=== PATIENT | female | born 1990 | race Caucasian/White ===

== ENCOUNTER 2016-09-03 09:40 | Observation (INO) | payer OTHER ==
[~2016-09-03] VITALS: Ht 175.3 cm; Wt 91.6 kg
--- NOTE | 2016-09-03 09:35 | NUR ---
Admission @ 35 weeks 6 days admitted per wheelchair from [facility] for evaluation of elevated BP.
[2016-09-03] MEDS ORDERED: LIDOCAINE 1% (10mg/ml) 2ml SDV ID PRN (10:00)
[2016-09-03 10:21] LABS: BASOPHILS % (AUTO) 0.2 % (0-2); EOSINOPHILS # (AUTO) 0.1 T/MM3 (0-0.5); EOSINOPHILS % (AUTO) 0.6 % (0-4); HCT - HEMATOCRIT 38.2 % (36-46); HGB - HEMOGLOBIN 12.8 GM/DL (12-16); IMMATURE GRANULOCYTE # (AUTO) 0.11 T/MM3 (0.00-0.03); LYMPHOCYTES # (AUTO) 2.1 T/MM3 (1-4.8); LYMPHOCYTES % (AUTO) 19.8 % (23-45); MEAN CORPUSCULAR HGB 28.5 UUG (26-34); MEAN CORPUSCULAR HGB CONC(MCHC 33.5 GM/DL (31-37); MEAN CORPUSCULAR VOLUME 85.1 UM3 (80-100); MEAN PLATELET VOLUME 11.6 UM3 (9.4-12.4); MONOCYTES # (AUTO) 0.8 T/MM3 (0-0.8); MONOCYTES % (AUTO) 6.9 % (0-9.0); NEUTROPHILS #(AUTO)-ABSOLUTE 7.7 T/MM3 (1.8-7.7); NEUTROPHILS % (AUTO) 71.5 % (33-66); RED BLOOD COUNT 4.49 M/MM3 (4.00-5.20); WBC - WHITE BLOOD COUNT 10.8 T/MM3 (4.5-11.0)
[2016-09-03] MEDS ORDERED: PREN1TAB86 (10:23)
[2016-09-03] MEDS ORDERED: ACET-62 PO (10:25)
[2016-09-03 10:30] LABS: ALBUMIN 3.6 G/DL (3.5-5.0); ALBUMIN/GLOBULIN RATIO 1.3 RATIO (1.1-2.2); ALKALINE PHOSPHATASE 139 U/L (38-126); ALT (SGPT) 28 U/L (9-52); ANION GAP 10 MEQ/L (5-15); AST (SGOT) 23 U/L (14-36); BUN/CREATININE RATIO 12 RATIO (6-26); CALCIUM 9.6 MG/DL (8.4-10.2); CHLORIDE 106 MEQ/L (98-107); CO2 - CARBON DIOXIDE 23 MEQ/L (22-30); CREATININE 0.6 MG/DL (0.7-1.2); GLOMERULAR FILTRATION RATE 122; GLUCOSE 86 MG/DL (65-110); SODIUM 139 MEQ/L (134-144); TOTAL PROTEIN 6.3 G/DL (6.3-8.2)
[2016-09-03] MEDS ORDERED: CYCL-375 PO (11:08)
--- NOTE | 2016-09-03 12:32 | PNPDOC ---
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 No Sx. Good FM. Objective General: Alert and Oriented Laboratory Item Value Date Time Platelet Count 171 T/MM3 09/03/16 1009 Hemoglobin 12.8 GM/DL 09/03/16 1009 Creatinine 0.6 MG/DL L 09/03/16 1009 Aspartate Amino Transf (AST/SGOT) 23 U/L 09/03/16 1009 Alanine Aminotransferase (ALT/SGPT) 28 U/L 09/03/16 1009 Objective Comments NST reactive. [place]- irritability (1) 35 weeks gestation of (2) Gestational hypertension Assessment & Plan: Finish 24 hour urine. Likely deliver at 37 wks unless severe preeclampsia develops prior. Recheck BP in office on Wednesday. Q&A JUWAN TAPIA MD Sep 03, 2016 12:32
[2016-09-03 13:25] VITALS: Ht 175.3 cm; Wt 91.6 kg
[2016-09-03] MEDS ORDERED: ACETAMINOPHEN 500 MG TABLET PO PRN (15:15)
--- NOTE | 2016-09-03 15:15 | NUR ---
Report from Bhavana Stevens RN. Care assumed. Pt resting in bed with TV on. States her PERES is "not bad." She stated that by this time in the day she has already drank 100 oz of H2O, but today she has only had about 500 ml and wonders if that is the cause of her PERES. Tylenol 1000 mg po given as ordered by Dr Donaldson. Discussed POC with pt. Verbalized understanding. Encouraged to call PRN.
--- NOTE | 2016-09-03 15:15 | NUR ---
Shift summary Patient has been on bedrest with bathroom privileges since admission. Has tolerated lunch tray. Collecting urine for 24 hour urine. Patient's mother has been here and supportive. is at work. Monitoring BP. Reports headache now.
[2016-09-03 15:45] VITALS: BP 134/76; PULSE 75; RESP 18; TEMP 98.8
--- NOTE | 2016-09-03 15:45 | NUR ---
PERES RN in room for VS. BP 130s/70s. Pt denies PERES. Denies further needs.
[2016-09-03] MEDS ORDERED: DiphenhydrAMINE 25 MG CAPSULE PO PRN (17:45)
--- NOTE | 2016-09-03 17:45 | NUR ---
Pt Communication Discussed new POC for evening with pt, and reminded of reportable signs and symptoms. States that will be bringing her dinner. Denies PERES, visual changes, and upper quadrant pain. Denies needs.
--- NOTE | 2016-09-03 18:10 | NUR ---
Dr Izquierdo Pt requests to get the muscle relaxer she takes at bedtime for her chronic hip pain. Dr Donaldson notified. Order given.
--- NOTE | 2016-09-03 20:15 | NUR ---
Status Pt sitting in bed, working on laptop. at bedside. TV on. Pt denies PERES, visual changes, and upper quadrant pain. Requests flexeril before bed. Will give after obtained from HS. Denies needs at this time.
[2016-09-03 20:18] VITALS: BP 146/78; PULSE 86; RESP 16; TEMP 98.2
[2016-09-03] MEDS ORDERED: CYCLOBENZAPRINE 10 MG TABLET PO ONE (22:00)
[2016-09-04 00:05] VITALS: BP 131/72; PULSE 87; RESP 16; TEMP 98
--- NOTE | 2016-09-04 00:05 | NUR ---
Status Pt asleep when RN entered room for vital signs. Woke easily to name. Denies PERES and pain. States that she has been able to sleep. Refuses benadryl at this time. Encouraged to rest. Denies further needs.
--- NOTE | 2016-09-04 00:24 | NUR ---
Chart Check 24 hour chart check completed
[2016-09-04 04:06] VITALS: BP 124/74; PULSE 86; RESP 18
[2016-09-04 08:39] VITALS: BP 132/76; PULSE 85; RESP 17; TEMP 98.1
[2016-09-04 09:15] LABS: CREATININE 0.6 MG/DL (0.7-1.2)
== END 2016-09-04 11:40 | disposition home or self-care (01) ==
LOC: MC 09:40 → OBSVTOIN 09:55 → INTOOBSV 09:55
PROVIDERS: ADMIT Obstetrics & Gynecology; ATTEND Obstetrics & Gynecology
DX: O13.3 Gestational [pregnancy-induced] hypertension without significant proteinuria, third trimester (principal); Z3A.35 35 weeks gestation of pregnancy
CPT/HCPCS: 36415; 80053; 82575; 84156; 85025; 99218

== ENCOUNTER 2016-09-08 09:54 | Inpatient (IN) | payer OTHER ==
[~2016-09-08] VITALS: Ht 175.3 cm; Wt 91.8 kg
[2016-09-08] MEDS: GENTAMICIN 120 MG in NORMAL SALINE 100 ML IV SCH ×2 (01:00→17:15)
[~2016-09-08 09:54] MED LIST: ACET-62 PO; CYCL-375 PO; PREN1TAB86
--- OUTSIDE RECORDS SUMMARY | 2016-09-08 10:08 | XMS REPORT | Continuity of Care Document ---
Author Author [facility] Organization [facility] Address Unknown Phone Unavailable Care Team Providers Care Ic Designer Custom Name Role Phone MACK HORN MD Primary Care Physician [phone] Insurance Providers Guarantor Carmita [place] [address] Email DENIED 16 Payer [employer] Policy Number [id number] Subscriber's Name CancholaShayne Rey Relationship 19 Child Group Number [id number] Advance Directives Directive Response Recorded Date/Time Ordered Resuscitation Status Full Code 09/03/16 9:55am Resuscitation Documents on File No 09/03/16 2:05pm DPOA for Healthcare Only No 09/03/16 2:05pm Living Will No 09/03/16 2:05pm Problems Active Problems Medical Problem Onset Date Status 35 weeks gestation of Unknown Gestational hypertension Unknown Medications Current Home Medications Medication Dose Units Route Directions Days Qty Instructions Start Date Acetaminophen 500 Mg Tablet 1-2 Tab Oral as needed for Pain Do not exceed 3,200 mg of acetaminophen in a 24 hours period. 09/03/16 Cyclobenzaprine Hcl 10 Mg Tablet 1 Tab Oral as needed for Muscle Spasm 09/03/16 Vit W-Ca,Fe,Fa(<1 Mg) ( Vitamins) 1 Each Tablet 09/03/16 Social History Social History Problem Response Recorded Date/Time Onset Date Status Reason for Hospitalization WITH ELEVATED BLOOD PRESSURES 2016 11:03am Not Applicable Not Applicable Hx Substance Use No 09/03/2016 2:05pm Not Applicable Not Applicable Has the pt used tobacco in the last 12 months No 09/03/2016 2:05pm Not Applicable Not Applicable Query Response Start Date Stop Date Smoking Status Never smoker Hospital Discharge Instructions Instructions: Care Instructions: I was in the hospital because (patient own words): being checked for preeclampsia Discharge Diet: REGULAR Discharge Activity: DECREASE ACTIVITY Follow Up Appointments: FOLLOW UP WITH DR TAPIA WednesdayAugust Pending Lab / Results: No Pending Lab Expected Signs/Symptoms: PRECAUTIONS DISCUSSED PER DR WHITFIELD Notify Physician If: SEE DISCHARGE TEACHING During Business Hours:: Please call the physician's office at After Business Hours:: Please call [phone] and have the cracker and cookie machine operator page the physician. Pain Management/Treatment: SEE DISCHARGE TEACHING Pain Scale Utilized to Educate Patient: 0-10 Pain Scale Wound/Incision Care: NA Condition at time of discharge: Good Plan of Care Discharge Date 09/04/16 11:40am Disposition 30 STILL A PATIENT Instructions/Education Provided [facility] Prescriptions See Medication Section Care Plan and Goals See Discharge Instructions Section Functional Status Query Response Date Recorded Ability to complete ADL's impeded by No change September 03, 2016 10:16am Allergies, Adverse Reactions, Alerts No known allergies. Immunizations Query Response on File Recorded Date/Time Hx Influenza Vaccination Yes 09/03/16 10:18am Hx Pneumococcal Vaccination No 09/03/16 10:18am Hx Influenza Vaccination Yes 09/03/16 10:18am Influenza Vaccine Hx 03-18-16 09/03/16 2:05pm Tdap Vaccine Hx 07-28-2016 09/03/16 2:05pm Vital Signs Acute Vital Signs Vital Response Date/Time Temperature (Fahrenheit) 98.1 deg F (96.8 - 99.1) 09/04/2016 8:39am Temperature (Calculated Celsius) 36.31488 degrees C (36.0 - 37.3) 09/04/2016 8:39am Pulse Rate (adult) 85 bpm (60 - 100) 09/04/2016 8:39am Respiratory Rate 17 breaths/min (10 - 20) 09/04/2016 8:39am Blood Pressure 132/76 mm Hg 09/04/2016 8:39am Blood Pressure Source Automatic Cuff 09/04/2016 8:39am Height (Feet) 5 feet 09/03/2016 2:05pm Height (Inches) 9.00 inches 09/03/2016 2:05pm Weight (Kilograms) 91.600 kg 09/03/2016 2:05pm Body Mass Index (BMI) 29.8 09/03/2016 1:25pm Results Laboratory Results Test Name Result Units Flags Reference Collection Date/Time Result Date/ Time Comments White Blood Count 10.8 T/MM3 4.5-11.0 09/03/2016 10:09/03/2016 10: 21am Red Blood Count 4.49 M/MM3 4.00-5.20 09/03/2016 10:09/03/2016 10: 21am Hemoglobin 12.8 GM/DL 12-16 09/03/2016 10:09/03/2016 10:21am Hematocrit 38.2 % 36-46 09/03/2016 10:09/03/2016 10:21am Mean Corpuscular Volume 85.1 UM3 80-100 09/03/2016 10:09/03/2016 10:21am Mean Corpuscular Hemoglobin 28.5 UUG 26-34 09/03/2016 10:2016 10:21am Mean Corpuscular Hemoglobin Concent 33.5 GM/DL 31-37 09/03/2016 10:09/03/2016 10:21am RDW Standard Deviation 41.4 FL 36.9-50.2 09/03/2016 10:09/03/2016 10:21am Platelet Count 171 T/MM3 130-400 09/03/2016 10:09/03/2016 10:21am Mean Platelet Volume 11.6 UM3 9.4-12.4 09/03/2016 10:09/03/2016 10 :21am Neutrophils (%) (Auto) 71.5 % H 33-66 09/03/2016 10:09/03/2016 10: 21am Lymphocytes (%) (Auto) 19.8 % L 23-45 09/03/2016 10:09/03/2016 10: 21am Monocytes (%) (Auto) 6.9 % 0-9.0 09/03/2016 10:09/03/2016 10:21am Eosinophils (%) (Auto) 0.6 % 0-4 09/03/2016 10:09/03/2016 10:21am Basophils (%) (Auto) 0.2 % 0-2 09/03/2016 10:09/03/2016 10:21am Immature Granulocyte % (Auto) 1.0 % H 0.0-0.5 09/03/2016 10:2016 10:21am Absolute Neutrophils (auto) 7.7 T/MM3 1.8-7.7 09/03/2016 10:2016 10:21am Absolute Lymphocytes (auto) 2.1 T/MM3 1-4.8 09/03/2016 10:2016 10:21am Absolute Monocytes (auto) 0.8 T/MM3 0-0.8 09/03/2016 10:2016 10:21am Absolute Eosinophils (auto) 0.1 T/MM3 0-0.5 09/03/2016 10:2016 10:21am Absolute Basophils (auto) 0.0 T/MM3 0-0.2 09/03/2016 10:2016 10:21am Absolute Immature Granulocyte (auto 0.11 T/MM3 H 0.00-0.03 09/03/2016 10: 09/03/2016 10:21am Icterus Index < 2 0-7 09/03/2016 10:09/03/2016 10:30am Chemistry Specimen Hemolysis < 15 0-25 09/03/2016 10:09/03/2016 10:30am 0-25: Specimen Exhibited No Hemolysis. Turbidity < 20 0-20 09/03/2016 10:09/03/2016 10:30am Sodium Level 139 MEQ/L 134-144 09/03/2016 10:09/03/2016 10:30am Potassium Level 4.0 MEQ/L 3.6-5 09/03/2016 10:09/03/2016 10:30am Chloride Level 106 MEQ/L 98-107 09/03/2016 10:09/03/2016 10:30am Carbon Dioxide Level 23 MEQ/L 22-30 09/03/2016 10:09/03/2016 10: 30am Anion Gap 10 MEQ/L 5-15 09/03/2016 10:09/03/2016 10:30am Blood Urea Nitrogen 7.0 MG/DL 7-17 09/03/2016 10:09/03/2016 10: 30am Creatinine 0.6 MG/DL L 0.7-1.2 09/03/2016 9:0009/04/2016 9:15am BUN/Creatinine Ratio 12 RATIO 6-26 09/03/2016 10:09/03/2016 10: 30am Glomerular Filtration Rate Calc 122 09/03/2016 9:0009/04/2016 9: 15am Glucose Level 86 MG/DL 65-110 09/03/2016 10:09/03/2016 10:30am Calculated Osmolality 265 MOSM/KG 261-280 09/03/2016 10:2016 10:30am Calcium Level 9.6 MG/DL 8.4-10.2 09/03/2016 10:09/03/2016 10:30am Total Bilirubin 0.60 MG/DL 0.20-1.30 09/03/2016 10:09/03/2016 10: 30am Alkaline Phosphatase 139 U/L H 38-126 09/03/2016 10:09/03/2016 10: 30am Total Protein 6.3 G/DL 6.3-8.2 09/03/2016 10:09/03/2016 10:30am Albumin 3.6 G/DL 3.5-5.0 09/03/2016 10:09/03/2016 10:30am Globulin 2.7 G/DL 2.4-3.6 09/03/2016 10:09/03/2016 10:30am Albumin/Globulin Ratio 1.3 RATIO 1.1-2.2 09/03/2016 10:09/03/2016 10:30am Aspartate Amino Transf (AST/SGOT) 23 U/L 14-36 09/03/2016 10:09/03 10:30am Alanine Aminotransferase (ALT/SGPT) 28 U/L 9-52 09/03/2016 10: 10:30am Urine Creatinine 64.4 MG/DL 09/03/2016 9:09/04/2016 9:20am Creatinine Clearance 24 Hour 142.0 ML/MIN H 75-115 09/03/2016 9:00am 9:20am Urine Protein 18 MG/DL 09/03/2016 9:00am 09/04/2016 9:19am Urine Total Protein 24 Hour 414 MG/24HR H 42-225 09/03/2016 9:00am 09/04 9:26am Patient Height (Urine) 175.3 CM 09/03/2016 9:00am 09/04/2016 9:15am Patient Weight (Urine) 92 KG 09/03/2016 9:00am 09/04/2016 9:15am Urine Total Volume 2.300 L 09/03/2016 9:00am 09/04/2016 9:28am Urine Collection Time 24 HRS 09/03/2016 9:00am 09/04/2016 9:28am Procedures No known history of procedures. Encounters Encounter Location Arrival/Admit Date Discharge/Depart Date Attending Provider Discharged Inpatient (obs) [facility] 09/03/16 9:40am 09/04/16 11 :40am JUWAN TAPIA MD
[2016-09-08] MEDS ORDERED: MAG-AL + SIM LIQUID 30 ML UDC PO PRN (10:15)
[2016-09-08] MEDS ORDERED: CALCIUM CARBONATE 500mg Chewable TAB PO PRN (10:15)
[2016-09-08] MEDS ORDERED: LIDOCAINE 1% (10mg/ml) 2ml SDV ID PRN (10:15)
[2016-09-08] MEDS: LR 1,000 ML IV PRN ×3 (10:24→22:44)
[2016-09-08 10:28] LABS: HCT - HEMATOCRIT 39.5 % (36-46); HGB - HEMOGLOBIN 13.4 GM/DL (12-16); MEAN CORPUSCULAR HGB 28.5 UUG (26-34); MEAN CORPUSCULAR HGB CONC(MCHC 33.9 GM/DL (31-37); MEAN PLATELET VOLUME 11.6 UM3 (9.4-12.4); RED BLOOD COUNT 4.7 M/MM3 (4.00-5.20); WBC - WHITE BLOOD COUNT 9.7 T/MM3 (4.5-11.0)
[2016-09-08] MEDS ORDERED: D5LR 1,000 ML IV PRN (11:00)
[2016-09-08] MEDS ORDERED: OXYTOCIN 30 UNIT in D5LR 500 ML PRN (11:30)
[2016-09-08 11:34] VITALS: BP 143/69; PULSE 112; RESP 16; TEMP 98.1; O2SAT 100
[2016-09-08 11:51] LABS: ALBUMIN 3.5 G/DL (3.5-5.0); ALBUMIN/GLOBULIN RATIO 1.2 RATIO (1.1-2.2); ALKALINE PHOSPHATASE 157 U/L (38-126); ALT (SGPT) 25 U/L (9-52); ANION GAP 13 MEQ/L (5-15); AST (SGOT) 22 U/L (14-36); BUN/CREATININE RATIO 10 RATIO (6-26); CALCIUM 9.6 MG/DL (8.4-10.2); CHLORIDE 108 MEQ/L (98-107); CO2 - CARBON DIOXIDE 20 MEQ/L (22-30); CREATININE 0.6 MG/DL (0.7-1.2); GLOMERULAR FILTRATION RATE 122; GLUCOSE 93 MG/DL (65-110); POTASSIUM 3.8 MEQ/L (3.6-5); SODIUM 141 MEQ/L (134-144); TOTAL PROTEIN 6.5 G/DL (6.3-8.2)
--- NOTE | 2016-09-08 14:01 | ANESOB ---
Epidural/ Date/Time DATE: 09/08/16 TIME: 1310 Preop Diagnosis Procedure: Labor Epidural Plan: Epidural Height: 5 ' 9.00 " Weight: 91.800 kg BMI: kg/m2 P:0 Medications & Allergies Inpatient Medications Current Medications Medications (Trade) Dose Ordered Sig/Jolene Start Time Stop Time Status Last Admin Dose Admin Lidocaine HCl 0.2 mg 0.2 mg PRN PRN 09/08/16 10:15 Lactated Ringer's (Lactated Ringers) 1,000 ml @ 0 mls/hr Q0M PRN 09/08/16 10:08 09/08/16 13:42 0 MLS/HR Acetaminophen (Tylenol Extra Strength) 1-2 TABS = 500-1,000 MG Q4H PRN 09/08/16 10:15 Al Hydroxide/Mg Hydroxide (Maalox) 30 ml Q4H PRN 09/08/16 10:15 Calcium Carbonate 1-2 TABS Q2H PRN 09/08/16 10:15 Dextrose/Lactated Ringer's 1,000 ml @ 0 mls/hr Q0M PRN 09/08/16 11:00 09/08/16 11:32 0 MLS/HR Oxytocin/Dextrose/ Lactated Ringer's (Pitocin/D5lr) 503 ml @ 0 mls/hr Q0M PRN 09/08/16 11:30 09/08/16 11:31 0 MLS/HR Acetaminophen (Acetaminophen) 500 Mg Tablet, 1-2 TAB PO for PAIN, (Reported) Do not exceed 3,200 mg of acetaminophen in a 24 hours period. Last Taken: on 09/07/16 1000 Cyclobenzaprine HCl (Cyclobenzaprine HCl) 10 Mg Tablet, 1 TAB PO for MUSCLE SPASM, (Reported) Last Taken: on 09/06/16 2000 Vit W-Ca,Fe,FA(<1 mg) ( Vitamins) 1 Each Tablet, (Reported) Last Taken: on 09/08/16 0800 Coded Allergies: No Known Allergies (Unverified , 09/08/16) Medical/Surgical History Anesthesia PMH: Reports: *Hypertension (mild preeclampsia), Denies: *Diabetes, *CO, Anesthesia Reactions, Asthma, Bld Transfusion Reaction, CHF, COPD, CVA/ Stroke/TIA, Cancer, Malignant Hyperthermia, Seizures Does patient use chewing tobac: No Second Hand Exposure: No Substance Use Type: does not use Alcohol Intake: none Anesthesia Adverse Reactions: FOUND none Family Hx of Anesthesia Advers: none Complications During : No Pertinent Findings Laboratory Tests 09/08/16 10:19 09/08/16 10:49 Physical Exam Respiratory: Lungs clear Cardiovascular: Regular rate, rhythm Airway Assessment Mallampati Score: II TMD: 3 Fingerbreadths Neck Extension: Good Overall Assessment: May Be Diff Mask Vent., May Be Diff Intubation ASA: 2 Discussion Discussed risks/options/alternatives of anesthesia. Patient consents. Nursing pain assessment noted. Present for Discussion: Present: Family Member, Parent, Spouse Attestation Statement Prior to the delivery of any anesthetic medication, I examined the patient, developed the plan, obtained the patient's consent and discussed the risk and benefits of the procedure with the patient/guardian. If the note happens to be signed after anesthesia start time, it is only due to providing efficient care of the patient and documenting at a time when the computer is available. PABLO CHUNG CRNA Sep 08, 2016 14:01
[2016-09-08] MEDS ORDERED: ROPIVACAINE 1% 200 MG, SUFENTANIL 50 MCG in NORMAL SALINE 80 ML EPI PRN (14:15)
[2016-09-08] MEDS ORDERED: ONDANSETRON 4mg/2ml INJECTION IV PRN (14:15)
[2016-09-08] MEDS ORDERED: DiphenhydrAMINE 50 MG/ML INJECTION IV PRN (14:15)
[2016-09-08] MEDS ORDERED: NALOXONE 0.4mg/ml INJECTION IV PRN (14:15)
[2016-09-08] MEDS ORDERED: OXYTOCIN 30 UNIT in D5W 500 ML IV ONE (16:51)
[2016-09-08] MEDS ORDERED: PHENYLEPHRINE RECTAL SUPPOSITORY RECTALLY PRN (17:00)
[2016-09-08] MEDS ORDERED: HYDROCODONE/APAP 5 mg/325 mg TABLET PO PRN (17:00)
[2016-09-08] MEDS ORDERED: DiphenhydrAMINE 25 MG CAPSULE PO PRN (17:00)
[2016-09-08] MEDS ORDERED: MEASLES-MUMPS-RUBELLA VACCINE 0.5ml INJECTION SQ ONE (17:00)
[2016-09-08] MEDS ORDERED: HYDROCORTISONE 2.5% CREAM 30 GM RECTALLY PRN (17:00)
[2016-09-08] MEDS ORDERED: MILK OF MAGNESIA 30 ML SUSP PO PRN (17:00)
[2016-09-08] MEDS ORDERED: GENTAMICIN 120 MG in NORMAL SALINE 100 ML IV SCH (17:00)
[2016-09-08] MEDS ORDERED: GENTAMICIN 100 ML IV SCH (17:15)
[2016-09-08] MEDS: AMPICILLIN 2 G in NORMAL SALINE 100 ML IV SCH ×2 (17:15→22:43)
--- NOTE | 2016-09-08 17:17 | NUR ---
GENTAMICIN CONSULT: Order noted to begin gentamicin therapy for Ms Canchola, who is 26 years old and weights 91.8kg. Her serum creatinine is 0.6 mg/dl. Will begin with gentamicin 120mg IV q8h. If therapy continues >48hrs, will draw levels and evaluate. Will continue to monitor and adjust if necessary. Thank you.
--- NOTE | 2016-09-08 20:23 | ANESPO ---
Post-Op Note Date 09/08/16 Time: 20:23 Status Pt Participated in Evaluation: Pt participated in person Vital Signs Date Time Temp Pulse Resp B/P Pulse Ox O2 Delivery O2 Flow Rate FiO2 09/08/16 11:34 98.1 112 16 143/69 100 Room Air Respiratory Function: Airway patent, Regular respirations Cardiovascular Function: Regular pulse Mental Status: Alert/oriented Pain Level Intensity: 0 Hydration: Taking po fluids Complications during Recovery None apparent Follow-Up Instructions Instructions Per Surgeon SAMINA MARTINEZ CRNA Sep 08, 2016 20:23
[2016-09-08 20:32] VITALS: BP 123/83; PULSE 94; RESP 18; TEMP 99.1; O2SAT 99
[2016-09-08] MEDS: IBUPROFEN 800 MG TABLET PO PRN (20:37)
--- NOTE | 2016-09-08 20:50 | NUR ---
Epidural Epidural catheter removed without complications, tip intact, no S/S of infection noted. Area cleansed with alcohol, betadine and covered with a bandaid. Pt. educated about S/S of infection and to call doctor with concerns.
--- NOTE | 2016-09-08 20:50 | NUR ---
status patient up to bathroom for first time. patient denied dizziness or other problems while ambulating to bathroom. patient provided own allie care and was able to empty bladder. denies further needs or complaints. will continue to monitor.
--- NOTE | 2016-09-08 21:00 | NUR ---
Care Assumed Bedside report from Cheikh Fiore RN. Care assumed. Pt sitting up in bed holding . Reports that ibuprofen decreased pain, and is doing well at this time. Discussed POC with pt. Denies needs.
--- NOTE | 2016-09-08 23:30 | NUR ---
Status Pt laying in bed holding infant. States she is ready to sleep. VSS. Ampicillin infused. Infant swaddled and placed in bassinet. Pt denies pain and needs. Lights dimmed. at bedside. Encouraged to call PRN.
[2016-09-08 23:36] VITALS: BP 130/67; PULSE 88; RESP 16; TEMP 98.3
--- NOTE | 2016-09-09 00:56 | NUR ---
Chart Check 24 hour chart check completed
[2016-09-09] MEDS: IBUPROFEN 800 MG TABLET PO PRN ×2 (03:53→15:44)
[2016-09-09 04:21] VITALS: BP 112/58; PULSE 70; RESP 16; TEMP 98.5
[2016-09-09] MEDS: AMPICILLIN 2 G in NORMAL SALINE 100 ML IV SCH ×3 (05:08→17:10)
[2016-09-09 06:06] LABS: HCT - HEMATOCRIT 34.7 % (36-46); HGB - HEMOGLOBIN 11.5 GM/DL (12-16); MEAN CORPUSCULAR HGB 28.3 UUG (26-34); MEAN CORPUSCULAR HGB CONC(MCHC 33.1 GM/DL (31-37); MEAN CORPUSCULAR VOLUME 85.5 UM3 (80-100); MEAN PLATELET VOLUME 12.1 UM3 (9.4-12.4); RED BLOOD COUNT 4.06 M/MM3 (4.00-5.20); WBC - WHITE BLOOD COUNT 14.6 T/MM3 (4.5-11.0)
[2016-09-09 08:20] VITALS: BP 118/72; PULSE 68; RESP 16; TEMP 98.2
--- NOTE | 2016-09-09 08:29 | PNPDOC ---
Progress Note PPD1 Rubella: Equivical GBS: Negative Blood Type:O pos Subjective 09/09/16 Lochia: Minimal Pain: Controlled Voiding: Voiding Objective Vital Signs Date Time Temp Pulse Resp B/P Pulse Ox O2 Delivery O2 Flow Rate FiO2 09/09/16 04:21 98.5 70 16 112/58 Room Air 09/08/16 20:32 99 Urine Output: Good General: Alert and Oriented Abdomen: Fundus Firm Mildly tender Extremities: Non-tender Laboratory Item Value Date Time White Blood Count 14.6 T/MM3 H # 09/09/16518 Hemoglobin 11.5 GM/DL L # 09/09/16518 Assessment (1) (spontaneous vaginal delivery) Assessment & Plan: MMR vaccine. Plan: Routine Care (2) Chorioamnionitis, delivered, current hospitalization Assessment & Plan: Resolving. Continue Abx until 24 hours afebrile. (3) Mild preeclampsia delivered Assessment & Plan: Resolving. JUWAN TAPIA MD Sep 09, 2016 08:29
[2016-09-09] MEDS: GENTAMICIN 120 MG in NORMAL SALINE 100 ML IV SCH (09:11)
[2016-09-09] MEDS ORDERED: GENTAMICIN 120 MG in NORMAL SALINE 100 ML IV SCH (09:15)
[2016-09-09 12:30] VITALS: BP 128/77; PULSE 78; RESP 16; TEMP 98.3; O2SAT 97
--- NOTE | 2016-09-09 13:18 | LDNF ---
DATE 09/08/2016 Carmita is a 26-year-old 1 at 36 weeks 4 days gestational age who presented to my office with gross rupture of membranes. She was 3 cm dilated. She was sent to the hospital. She also has a known diagnosis of mild preeclampsia and her pressures continued to be in that range without symptoms. She was not marie so she was started on Pitocin. She received an epidural. She progressed nicely through labor. While she was pushing her temperature elevated and got up to 100.8. Carmita was also tachycardic so she was started on ampicillin and gentamicin for chorioamnionitis. She had a spontaneous vaginal delivery of a viable male infant, Apgars 8/9, weight 3115 grams, name "Tae". Baby was placed on mom's abdomen after delivery and the cord clamping was delayed for more than two minutes. The placenta delivered spontaneously. It was cultured and sent to pathology. She had a small left second-degree perineal laceration that was repaired as well as a small right vaginal laceration. Mom and baby tolerated the delivery well. WALDEMAR
--- NOTE | 2016-09-09 15:58 | NUR ---
Shift summary Patient up and about caring for self and baby. Pain controlled with Ibuprofen only. Has showered. Fundus firm, small amount lochia rubra. IVL and IV Ampicillin and Gentamicin continue. Has been afebrile since delivery. Bonding well with baby.
[2016-09-09 16:30] VITALS: BP 135/83; PULSE 80; RESP 16; TEMP 97.7; O2SAT 99
[2016-09-09] MEDS: ACETAMINOPHEN 500 MG TABLET PO PRN (16:48)
[2016-09-09] MEDS: DOCUSATE CALCIUM 240 MG CAPSULE PO SCH (17:57)
[2016-09-10 00:45] VITALS: BP 123/68; PULSE 85; RESP 18; TEMP 98.4; O2SAT 97
[2016-09-10] MEDS: IBUPROFEN 800 MG TABLET PO PRN ×2 (04:07→12:26)
[2016-09-10 07:15] VITALS: BP 136/69; PULSE 85; RESP 18; TEMP 97.6; O2SAT 100
--- NOTE | 2016-09-10 08:16 | PNPDOC ---
Progress Note PPD2 Rubella: Equivical GBS: Negative Blood Type:O pos Subjective 09/10/16 Lochia: Moderate Pain: Controlled Voiding: Voiding Nausea and Vomiting: No Nausea/Vomiting Objective VSS AF Vital Signs Date Time Temp Pulse Resp B/P Pulse Ox O2 Delivery O2 Flow Rate FiO2 09/10/16 07:15 97.6 85 18 136/69 100 Room Air General: Alert and Oriented Abdomen: Fundus Firm Extremities: Non-tender Edema: None Assessment (1) (spontaneous vaginal delivery) Assessment & Plan: MMR vaccine. Plan: Routine Care (2) Chorioamnionitis, delivered, current hospitalization Assessment & Plan: Resolving. Continue Abx until 24 hours afebrile. Plan: Routine Care (3) Mild preeclampsia delivered Assessment & Plan: Resolving. Plan: Routine Care Plan Routine Care, Discharge Home (Has Ibuprofen from home she plans to use for prn pain.) GRACY DO MEDICAID BUSINESS ANALYST Sep 10, 2016 08:16
[2016-09-10] MEDS: DOCUSATE CALCIUM 240 MG CAPSULE PO SCH (09:18)
[2016-09-10] MEDS: ACETAMINOPHEN 500 MG TABLET PO PRN (10:33)
== END 2016-09-10 12:30 | disposition home or self-care (01) | DRG 775 ==
LOC: MC 09:54
PROVIDERS: ADMIT Obstetrics & Gynecology; ATTEND Obstetrics & Gynecology
PROC: 10E0XZZ Delivery of Products of Conception, External Approach (ICD-10-PCS; principal; 2016-09-08)
PROC: 3E033VJ Introduction of Other Hormone into Peripheral Vein, Percutaneous Approach (ICD-10-PCS; 2016-09-08)
PROC: 0KQM0ZZ Repair Perineum Muscle, Open Approach (ICD-10-PCS; 2016-09-08)
DX: O60.14X0 Preterm labor third trimester with preterm delivery third trimester, not applicable or unspecified (principal); O41.1230 Chorioamnionitis, third trimester, not applicable or unspecified; O14.04 Mild to moderate pre-eclampsia, complicating childbirth; O76 Abnormality in fetal heart rate and rhythm complicating labor and delivery; O70.1 Second degree perineal laceration during delivery; O32.8XX0 Maternal care for other malpresentation of fetus, not applicable or unspecified; Z3A.36 36 weeks gestation of pregnancy; Z37.0 Single live birth
CPT/HCPCS: 36415; 80053; 85027; 86850; 86900; 86901; 87070; 87147; 87186; 87205; 90707